=== PATIENT | female | born 1970 | race Caucasian/White ===

== ENCOUNTER → 2016-07-30 | Outpatient (CLI) | payer OTHER ==
--- NOTE | 2016-07-30 23:17 | MR ---
EXAMINATION TYPE: MR thoracic spine wo con DATE OF EXAM: 07/30/2016 10:10 PM COMPARISON: NONE HISTORY: Mid back pain/muscle spasms since November 2015. Cervicalgia and lumbago with lumbar region spond ylolisthesis per order. TECHNIQUE: Multiplanar, multisequence imaging of thoracic spine is performed without contrast. FINDINGS: Artifact from surgical change is noted at C6-C7 level. Spinal cord shows normal course, merlyn iber, and signal as it courses the thoracic spine. Vertebral body heights and alignment are satisfac tory. Disc space heights are maintained. No large posterior disc herniations are seen on sagittal kenneth ges. Small hemangioma is noted at T10 vertebral body level inferiorly on sagittal image 8. Larger hem angioma seen at T2 posterior superior vertebral body level on sagittal image 6. There is mild multile villa anterior and lateral spurring felt present. Axial images are degraded by artifact at C7-T1 level. There is small left paracentral disc protrusion effacing anterolateral thecal sac at T6-T7 level on a xial image 2. Axial images at T11-T12 level show broad-based posterior disc protrusion mildly effacing anterior the merlyn sac on axial image 4, bilateral neural foramina are patent. Remainder axial images felt within normal limits. IMPRESSION: Some multilevel degenerative changes in the thoracic spine as detailed above.
== END | disposition home or self-care (01) ==
LOC: RADMRIMAIN 21:30
PROVIDERS: ATTEND Orthopaedic Surgery Orthopaedic Surgery of the Spine
DX: Z48.89 Encounter for other specified surgical aftercare (principal); M47.814 Spondylosis without myelopathy or radiculopathy, thoracic region; M43.16 Spondylolisthesis, lumbar region; M54.2 Cervicalgia
CPT/HCPCS: 72146

== ENCOUNTER 2017-02-26 07:53 | Day surgery (SDC) | payer OTHER ==
[2017-02-22 14:53] VITALS: BMI 34.7
[~2017-02-26 07:53] MED LIST: LACTATED RINGERS 1,000 ML IV SCH; LIDOCAINE 1% 20 ML VIAL (10MG/ML) FOR IV START INTRADERMA PRN
[2017-02-26 08:26] VITALS: TEMP 98.6
[2017-02-26 08:38] LABS: Glucose,Whole Blood 132 mg/dL (75-99)
[2017-02-26] MEDS ORDERED: PROPOFOL 10 MG/ML 20 ML VIAL IV ONE (08:50)
[2017-02-26] MEDS ORDERED: LIDOCAINE 1% INJ 10MG/ML (20 ML MDV) ONE (08:50)
[2017-02-26 09:49] VITALS: BP 131/90; PULSE 81; RESP 16
[2017-02-26 09:53] LABS: Glucose,Whole Blood 119 mg/dL (75-99)
--- NOTE | 2017-02-26 10:25 | P.PCN ---
Date of Procedure: 02/26/17 Preoperative Diagnosis: Postoperative Diagnosis: Procedure(s) Performed: Procedure: 1. Esophagogastroduodenoscopy and biopsy. 2. Colonoscopy and biopsy. Preoperative diagnosis: Chronic reflux symptoms and change in bowel habits. Postoperative diagnosis: 1. Small sliding hiatal hernia with no obvious esophagitis or complicated reflux disease. 2. Mild antral gastritis. 3. Normal colonoscopy. Preparation: HalfLytely prep. Sedation: Was provided by anesthesia. Brief clinical history: The patient is a 46-year-old female who is referred for this evaluation because of chronic reflux symptoms and change in bowel habits in addition to abdominal cramps and diarrhea that she has been experiencing over the last month or so. Procedure: With the patient on her left lateral decubitus position and after informed consent and adequate sedation, I passed the Olympus-GIF 160 video upper endoscope through the cricopharyngeus down the esophagus. GE junction was around 39-40 cm from the incisors and there was a very small sliding hiatal hernia with no evidence of esophagitis or complicated reflux disease. The endoscope was then passed into the stomach which was insufflated with air and inspected in detail including the retroflex view in the cardia. There was some mottling and erythema in the antrum but no ulcers or erosions. Pyloric channel , duodenal bulb, post bulbar area and descending duodenum were essentially within normal limits. However, because of her symptoms, I obtained biopsies from the duodenum in addition to biopsies from the antrum and esophagus then the endoscope was withdrawn and I proceeded with the colonoscopy. Perianal area did not show any fissures or fistulas. There were fleshy skin tags and external hemorrhoids. No masses were felt on digital rectal examination. The Olympus CFQ 160L video colonoscope was then inserted in the rectum and advanced to the cecum. I made several attempts to intubate the ileocecal valve to examine the terminal ileum but I was not successful. The colon appeared healthy with no edema, erythema, friability, ulceration, exudation or spontaneous bleeding. No polyps or tumors were seen or any obvious diverticular disease. I obtained biopsies from the right colon then I retroflexed the endoscope in the rectum before the endoscope was withdrawn. The patient tolerated the procedure well. Plan: The patient was reassured. Will await biopsy results and make further plans based on her course and biopsy results. She already has an appointment in our office in the next week or 2. Would keep you updated on her progress. Implants: Indications for Procedure: Operative Findings: Description of Procedure:
== END 2017-02-26 10:09 | disposition home or self-care (01) ==
LOC: ORWHC2ENDO 07:53
DX: K29.50 Unspecified chronic gastritis without bleeding (principal); K21.0 Gastro-esophageal reflux disease with esophagitis; K44.9 Diaphragmatic hernia without obstruction or gangrene; K64.4 Residual hemorrhoidal skin tags; R19.4 Change in bowel habit; I10 Essential (primary) hypertension; J44.9 Chronic obstructive pulmonary disease, unspecified; F17.200 Nicotine dependence, unspecified, uncomplicated; G47.33 Obstructive sleep apnea (adult) (pediatric); E11.9 Type 2 diabetes mellitus without complications; Z79.84 Long term (current) use of oral hypoglycemic drugs; F32.9 Major depressive disorder, single episode, unspecified; F41.9 Anxiety disorder, unspecified; M19.90 Unspecified osteoarthritis, unspecified site; Z79.899 Other long term (current) drug therapy
CPT/HCPCS: 81025; 88305; 88342; 45380; 43239; J2001; J2704

== ENCOUNTER → 2018-09-25 | Outpatient (CLI) | payer OTHER ==
--- NOTE | 2018-09-25 09:07 | US ---
EXAMINATION TYPE: US abdomen complete DATE OF EXAM: 09/25/2018 COMPARISON: NONE CLINICAL HISTORY: 47-year-old female R10.9 Abd pain. Intermittent abdomen and right flank pain x coup le months, gets worse after eating, occasional N/V TECHNIQUE: Multiple sonographic images of the abdomen are obtained. FINDINGS: EXAM MEASUREMENTS: Liver Length: 17.6 cm Gallbladder Wall: 0.1 cm CBD: 0.4 cm Spleen: 8.6 cm Right Kidney: 11.5 x 4.9 x 6.1 cm Left Kidney: 11.2 x 5.4 x 5.5 cm Pancreas: visualized portions wnl, tail obscured by overlying midline bowel gas Liver: measures in upper limits of normal, mildly heterogeneous and echogenic with 2 hypoechoic area s adjacent to gallbladder measuring 1.4cm and 1.4cm Gallbladder: 0.5cm hyperechoic non shadowing focus along posterior wall Evidence for sonographic Dinero's sign: no CBD: visualized portions wnl, limited by overlying bowel gas Spleen: wnl Right Kidney: wnl Left Kidney: wnl Upper IVC: wnl Abd Aorta: visualized portions wnl, limited by overlying midline bowel gas IMPRESSION: 1. Borderline hepatomegaly (17.6 cm) with mild to moderate hepatic steatosis. Some focal fatty sparin g along the gallbladder fossa. 2. A 5 mm nonshadowing echogenic focus along the posterior gallbladder wall does not appear mobile an d probably represents a gallbladder wall polyp. 6 month follow-up ultrasound to reassess. 3. No biliary ductal dilatation.
== END | disposition home or self-care (01) ==
LOC: RADUSWWP 07:23
DX: K76.0 Fatty (change of) liver, not elsewhere classified (principal); R16.0 Hepatomegaly, not elsewhere classified; K82.9 Disease of gallbladder, unspecified
CPT/HCPCS: 76700

== ENCOUNTER → 2018-10-06 | Outpatient (CLI) | payer OTHER ==
--- NOTE | 2018-10-06 12:08 | MR ---
EXAMINATION TYPE: MR thoracic spine wo con DATE OF EXAM: 10/06/2018 COMPARISON: MRI thoracic spine July 30, 2016 HISTORY: Back pain TECHNIQUE: Multiplanar, multisequence imaging of thoracic spine is performed without contrast FINDINGS: There is artifact from surgical hardware C6-C7 level redemonstrated Spinal cord redemonstra fabricio normal course, caliber, and signal as it courses the thoracic spine. Vertebral body heights and alignment are satisfactory. Disc space heights are maintained. Tiny posterior disc herniations are se en in the mid to lower thoracic spine similar to prior study. Bone marrow signal intensity is preserv ed. Hemangioma redemonstrated superior-posterior T2 level sagittal image 4. No significant spurring i s seen. Review of the axial images redemonstrate left paracentral disc protrusion effacing anterolateral thec al sac axial image 2 at T6-7 level confirmed sagittal image 5 similar to prior. There is persistent lobulated paracentral disc protrusion effacing anterolateral thecal sac at T11-T12 level on axial kenneth ge 5. No new large disc herniations are present. Visualized upper abdomen and thorax show no new susp icious abnormalities. Prominent but subcentimeter mediastinal lymph nodes are redemonstrated. IMPRESSION: Multilevel small posterior disc herniations mid to lower thoracic spine. No interval pro gression or new large disc herniations are identified.
== END | disposition home or self-care (01) ==
LOC: RADMRIMAIN 11:04
PROVIDERS: ATTEND Family Medicine
DX: M51.24 Other intervertebral disc displacement, thoracic region (principal)
CPT/HCPCS: 72146

== ENCOUNTER → 2018-10-30 | Outpatient (CLI) | payer OTHER ==
--- NOTE | 2018-10-31 10:43 | MM ---
Reason for exam: additional evaluation requested from abnormal screening. Last mammogram was performed 2 months ago. History: Took hormonal contraceptives beginning at age 17. Physical Findings: Nurse did not find any significant physical abnormalities on exam. MG 3D Diag Mammo W/Cad LT LM and spot compression MLO view(s) were taken of the left breast. Prior study comparison: August 27, 2018, mammogram. There are scattered fibroglandular densities. Anterior asymmetric density does not clearly persist. Ultrasound recommended. These results were verbally communicated with the patient and result sheet given to the patient on 10/30/18. ASSESSMENT: Incomplete: need additional imaging evaluation, BI-RAD 0 RECOMMENDATION: Ultrasound of the left breast.
--- NOTE | 2018-10-31 10:44 | USB ---
Reason for exam: additional evaluation requested from abnormal screening. History: Took hormonal contraceptives beginning at age 17. US Breast LT Left complete breast ultrasound includes all four quadrants, the retroareolar region and axilla. Finding demonstrates a vascular vein at 3 o'clock and duct ectasia at 8 o'clock. Precautionary 6 month follow up recommended. These results were verbally communicated with the patient and result sheet given to the patient on 10/30/18. ASSESSMENT: Probably benign, BI-RAD 3 RECOMMENDATION: Follow-up diagnostic mammogram of the left breast in 6 months.
== END | disposition home or self-care (01) ==
LOC: RADMAMWWP 13:03
PROVIDERS: ATTEND Family Medicine
DX: R92.8 Other abnormal and inconclusive findings on diagnostic imaging of breast (principal)
CPT/HCPCS: 77065; 76641; G0279; 77061

== ENCOUNTER 2019-03-24 14:22 | Emergency (ER) | payer OTHER ==
[2019-03-24 14:34] VITALS: RESP 18; TEMP 98.7
[2019-03-24] MEDS ORDERED: KETOROLAC 30 MG/ML 1 ML VIAL IVP STA (16:20)
[2019-03-24] MEDS ORDERED: SODIUM CHLORIDE 0.9% 500 ML 500 ML IV STA (16:20)
--- NOTE | 2019-03-24 16:31 | ED ---
General Adult HPI - General Chief complaint: Recheck/Abnormal Lab/Rx Stated complaint: Female Time Seen by Provider: 03/24/19 14:30 Source: patient, RN notes reviewed Mode of arrival: ambulatory Limitations: no limitations - History of Present Illness Initial comments: This is a 48-year-old female presents emergency department stating that in February she had a stent placed in her left ureter for kidney stone. Patient states she went back to her urologist and he refused to take it out because she states that he did not take her insurance. Patient states she continues to have pain and dysuria. Patient states she comes in today because she is looking to have someone potentially take this out and be treated for possible urinary tract infection. Patient denies abdominal pain. Patient complains of left flank pain. Patient denies any fever chills. Patient denies any nausea vomiting diarrhea. - Related Data Home Medications Medication Instructions Recorded Confirmed Acetaminophen [Tylenol Arthritis] 1,300 mg PO TID 01/10/16 03/24/19 Citalopram Hydrobromide [CeleXA] 40 mg PO DAILY 01/10/16 03/24/19 Methocarbamol [Robaxin] 500 mg PO TID PRN 01/10/16 03/24/19 Losartan [Cozaar] 50 mg PO DAILY 02/22/17 03/24/19 Ergocalciferol [Vitamin D2] 50,000 unit PO WE 03/24/19 03/24/19 Ferrous Sulfate [Feosol] 325 mg PO DAILY 03/24/19 03/24/19 Insulin Glargine,Hum.rec.anlog 35 unit SQ DAILY 03/24/19 03/24/19 [Joannaaglgillian Arechiga U-100] Omeprazole 40 mg PO HS 03/24/19 03/24/19 Pioglitazone HCl [Actos] 15 mg PO HS 03/24/19 03/24/19 Pramipexole [Mirapex] 0.5 mg PO HS 03/24/19 03/24/19 Pramipexole [Mirapex] 1 mg PO QAM 03/24/19 03/24/19 Simvastatin [Zocor] 40 mg PO HS 03/24/19 03/24/19 metFORMIN HCL 1,000 mg PO BID 03/24/19 03/24/19 Previous Rx's Medication Instructions Recorded Fluconazole [Diflucan] 150 mg PO ONCE #2 tab 03/24/19 Sulfamethox-Tmp 800-160Mg [Bactrim 1 each PO Q12HR #14 tab 03/24/19 DS 800-160 mg] Allergies Allergy/AdvReac Type Severity Reaction Status Date / Time adhesive tape Allergy raw red Verified 03/24/19 15:47 skin Review of Systems ROS Statement: Those systems with pertinent positive or pertinent negative responses have been documented in the HPI. ROS Other: All systems not noted in ROS Statement are negative. Past Medical History Past Medical History: Diabetes Mellitus, GERD/Reflux, Hyperlipidemia, Hypertension, Osteoarthritis (OA), Skin Disorder, Sleep Apnea/CPAP/BIPAP Additional Past Medical History / Comment(s): headaches, no cpap used, adult acne-hidradenitis supparativa, kae carpal tunnel, tendonitis rt ankle, bone spurs rt foot, benign tremor, restless leg syndrome, ROSACEA, FATTY LIVER (ENZYMES NORMAL) History of Any Multi-Drug Resistant Organisms: None Reported Past Surgical History: Back Surgery, Tonsillectomy, Tubal Ligation Additional Past Surgical History / Comment(s): I&D OF NUMEROUS HIDRADENITIS SUPPARATIVA OUTBREAKS, COLONOSCOPY, SPINAL FUSION C5-C6 Past Anesthesia/Blood Transfusion Reactions: Motion Sickness Past Psychological History: Anxiety, Depression Smoking Status: Current every day smoker Past Alcohol Use History: None Reported Past Drug Use History: None Reported - Past Family History Brother(s) Family Medical History: Cancer General Exam - General Exam Comments Initial Comments: GENERAL: Patient is well-developed and well-nourished. Patient is nontoxic and well- hydrated and is in mild distress. ENT: Neck is soft and supple. No significant lymphadenopathy is noted. Oropharynx is clear. Moist mucous membranes. Neck has full range of motion without eliciting any pain. EYES: The sclera were anicteric and conjunctiva were pink and moist. Extraocular move ments were intact and pupils were equal round and reactive to light. Eyelids were unremarkable. PULMONARY: Unlabored respirations. Good breath sounds bilaterally. No audible rales rhonchi or wheezing was noted. CARDIOVASCULAR: There is a regular rate and rhythm without any murmurs gallops or rubs. ABDOMEN: Soft and nontender with normal bowel sounds. SKIN: Skin is clear with no lesions or rashes and otherwise unremarkable. NEUROLOGIC: Patient is alert and oriented x3. Cranial nerves II through XII are grossly intact. Motor and sensory are also intact. Normal speech, volume and content. Symmetrical smile. MUSCULOSKELETAL: Normal extremities with adequate strength and full range of motion. LYMPHATICS: No significant lymphadenopathy is noted PSYCHIATRIC: Normal psychiatric evaluation. Limitations: no limitations Course Vital Signs 03/24/19 03/24/19 14:28 18:14 Temperature 98.7 F Pulse Rate 113 H 87 Respiratory 18 18 Rate Blood Pressure 136/86 108/68 O2 Sat by Pulse 98 97 Oximetry Medical Decision Making - Medical Decision Making KUB shows a ureteral stent that appears to be in place in the left side. I spoke with Dr. Purcell he agreed that he would see this patient if she wanted to come to his office. I gave the patient a gram or Rocephin for possible UTI. - Lab Data Result diagrams: 03/24/19 17:00 03/24/19 17:00 Lab Results 03/24/19 03/24/19 03/24/19 Range/Units 17:00 17:00 17:00 WBC 15.7 H (3.8-10.6) k/uL RBC 4.44 (3.80-5.40) m/uL Hgb 13.1 (11.4-16.0) gm/dL Hct 37.7 (34.0-46.0) % MCV 84.8 (80.0-100.0) fL MCH 29.5 (25.0-35.0) pg MCHC 34.7 (31.0-37.0) g/dL RDW 16.0 H (11.5-15.5) % Plt Count 304 (150-450) k/uL Neutrophils % 65 % Lymphocytes % 26 % Monocytes % 5 % Eosinophils % 1 % Basophils % 1 % Neutrophils # 10.2 H (1.3-7.7) k/uL Lymphocytes # 4.0 (1.0-4.8) k/uL Monocytes # 0.8 (0-1.0) k/uL Eosinophils # 0.2 (0-0.7) k/uL Basophils # 0.1 (0-0.2) k/uL Anisocytosis Slight Sodium 141 (137-145) mmol/L Potassium 3.4 L (3.5-5.1) mmol/L Chloride 103 (98-107) mmol/L Carbon Dioxide 27 (22-30) mmol/L Anion Gap 11 mmol/L BUN 10 (7-17) mg/dL Creatinine 0.42 L (0.52-1.04) mg/dL Est GFR (CKD-EPI)AfAm >90 (>60 ml/min/1.73 sqM) Est GFR (CKD-EPI)NonAf >90 (>60 ml/min/1.73 sqM) Glucose 97 (74-99) mg/dL Calcium 9.8 (8.4-10.2) mg/dL Total Bilirubin 0.2 (0.2-1.3) mg/dL AST 25 (14-36) U/L ALT 32 (9-52) U/L Alkaline Phosphatase 69 (38-126) U/L Total Protein 6.8 (6.3-8.2) g/dL Albumin 4.0 (3.5-5.0) g/dL Amylase 49 (30-110) U/L Lipase 54 (23-300) U/L Urine Color Yellow Urine Appearance Cloudy H (Clear) Urine pH 6.5 (5.0-8.0) Ur Specific [place] 1.028 (1.001-1.035) Urine Protein 2+ H (Negative) Urine Glucose (UA) Negative (Negative) Urine Ketones Negative (Negative) Urine Blood Moderate H (Negative) Urine Nitrite Negative (Negative) Urine Bilirubin Negative (Negative) Urine Urobilinogen 2.0 (<2.0) mg/dL Ur Leukocyte Esterase Moderate H (Negative) Urine RBC >182 H (0-5) /hpf Urine WBC 34 H (0-5) /hpf Ur Squamous Epith Cells 1 (0-4) /hpf Urine Mucus Few H (None) /hpf Disposition Clinical Impression: Urinary tract infection, Retained ureteral stent, Hematuria Disposition: HOME SELF-CARE Condition: Good Instructions (If sedation given, give patient instructions): Urinary Tract Infection in Women (ED) Additional Instructions: Patient needs to follow up with urology to have the ureteral stent removed Prescriptions: Sulfamethox-Tmp 800-160Mg [Bactrim DS 800-160 mg] 1 each PO Q12HR #14 tab Fluconazole [Diflucan] 150 mg PO ONCE #2 tab Is patient prescribed a controlled substance at d/c from ED?: No Referrals: Radha Crawford MD [Primary Care Provider] - 1-2 days Time of Disposition: 19:00
[2019-03-24 17:16] LABS: Anisocytosis Slight; Basophils # (A) 0.1 k/uL (0-0.2); Basophils % (A) 1 %; Eosinophils # (A) 0.2 k/uL (0-0.7); Eosinophils % (A) 1 %; HCT 37.7 % (34.0-46.0); HGB 13.1 gm/dL (11.4-16.0); Lymphocytes % (A) 26 %; MCH 29.5 pg (25.0-35.0); MCHC 34.7 g/dL (31.0-37.0); MCV 84.8 fL (80.0-100.0); Mean Platelet Volume 7.1; Monocytes # (A) 0.8 k/uL (0-1.0); Monocytes % (A) 5 %; Neutrophils # (A) 10.2 k/uL (1.3-7.7); Neutrophils % (A) 65 %; Platelet Count 304 k/uL (150-450); RBC 4.44 m/uL (3.80-5.40); WBC 15.7 k/uL (3.8-10.6)
[2019-03-24 17:19] LABS: Appearance,Urine Cloudy (Clear); Bilirubin,Urine Negative (Negative); Blood,Urine Moderate (Negative); Color,Urine Yellow; Glucose,Urine (UA) Negative (Negative); Ketones,Urine Negative (Negative); Leukocyte Esterase,Urine Moderate (Negative); Mucus,Urine Few /hpf; Nitrite,Urine Negative (Negative); PH, Urine 6.5 (5.0-8.0); Protein,Urine 2+ (Negative); RBC,Urine >182 /hpf (0-5); Specific Gravity,Urine 1.028 (1.001-1.035); Squamous Epithelial Cell,Urine 1 /hpf (0-4); WBC,Urine 34 /hpf (0-5)
[2019-03-24 17:27] LABS: ALT 32 U/L (9-52); AST 25 U/L (14-36); African American GFR (CKD) >90 (>60 ml/min/1.73 sqM); Alkaline Phosphatase 69 U/L (38-126); Amylase 49 U/L (30-110); Anion Gap 11 mmol/L; Blood Urea Nitrogen 10 mg/dL (7-17); Calcium 9.8 mg/dL (8.4-10.2); Carbon Dioxide 27 mmol/L (22-30); Chloride 103 mmol/L (98-107); Glucose 97 mg/dL (74-99); Potassium 3.4 mmol/L (3.5-5.1); Sodium 141 mmol/L (137-145); Total Bilirubin 0.2 mg/dL (0.2-1.3); Total Protein 6.8 g/dL (6.3-8.2)
--- NOTE | 2019-03-24 18:32 | XR ---
EXAMINATION TYPE: XR KUB DATE OF EXAM: 03/24/2019 COMPARISON: NONE HISTORY: Stent placement. TECHNIQUE: 2 views upright FINDINGS: There is left ureteral stent that appears to be in good position. I see no definite calculi over the left kidney. The bowel gas pattern is nonacute. Lung bases are clear. IMPRESSION: Nonacute abdomen. Ureteral stent is probably in good position.
[2019-03-24] MEDS ORDERED: cefTRIAXone IN SWFI 1,000 MG/10 ML SYRINGE IVP STA (18:34)
[2019-03-24] MEDS ORDERED: KETOROLAC 60 MG/2 ML VIAL IVP STA (19:00)
[2019-03-24 19:38] VITALS: BP 112/72; PULSE 86
== END 2019-03-24 19:38 | disposition home or self-care (01) ==
LOC: EC 14:22
DX: N39.0 Urinary tract infection, site not specified (principal); Z96.0 Presence of urogenital implants; E11.9 Type 2 diabetes mellitus without complications; K21.9 Gastro-esophageal reflux disease without esophagitis; E78.5 Hyperlipidemia, unspecified; I10 Essential (primary) hypertension; M19.90 Unspecified osteoarthritis, unspecified site; G25.81 Restless legs syndrome; F32.9 Major depressive disorder, single episode, unspecified; F41.9 Anxiety disorder, unspecified; F17.200 Nicotine dependence, unspecified, uncomplicated; Z91.048 Other nonmedicinal substance allergy status; Z79.4 Long term (current) use of insulin; Z79.891 Long term (current) use of opiate analgesic; Z79.899 Other long term (current) drug therapy; Z98.1 Arthrodesis status
CPT/HCPCS: 36415; 80053; 82150; 83690; 85025; 81001; 74018; 99284; 96374; 96375; 96376; 96361 ×2; J0696; J1885 ×2

== ENCOUNTER 2020-04-18 08:12 | Day surgery (SDC) | payer OTHER ==
[~2020-04-18 08:12] MED LIST changes: -LACTATED RINGERS 1,000 ML IV SCH; -LIDOCAINE 1% 20 ML VIAL (10MG/ML) FOR IV START INTRADERMA PRN; +PREMYELOGRAM MEDICATION REVIEW 1 EACH MISC PO PRN
[2020-04-18] MEDS ORDERED: diazePAM 5 MG TAB PO STA (09:01)
[2020-04-18 09:27] VITALS: TEMP 98.3
[2020-04-18] MEDS ORDERED: HYDROcodone/APAP 5-325MG 1 EACH TAB PO PRN (09:50)
--- NOTE | 2020-04-18 10:35 | CT ---
EXAMINATION TYPE: CT lumbar spine post myelogram DATE OF EXAM: 04/18/2020 COMPARISON: Back pain HISTORY: pain CT DLP: 900 mGycm Automated exposure control for dose reduction was used. CONTRAST: Noncontrast CT of the lumbar spine was performed post myelogram. Bone and soft tissue window setting s are submitted as well as coronal and sagittal reconstructions. At T12-L1 there is a right paracentral disc herniation with moderate effacement of thecal sac. No spi nal cord contact. Neural foramina patent. L1-L2: Normal disc space height. No disc herniation protrusion or central stenosis. No facet joint arthropathy. No evidence for foraminal encroachment. L2-L3: There is a left paracentral disc protrusion or tiny herniation with mild effacement of thecal sac. There is facet arthropathy. Neural foramina remain patent. L3-L4: Circumferential disc bulging with mild hypertrophic changes of the facets. Neural foramina pat ent. No foraminal encroachment. No Canal stenosis. L4-L5: Broad-based disc bulging centrally. Mild effacement of thecal sac. More advanced facet arthrop athy. Mild bilateral foraminal encroachment. L5-S1: Advanced facet arthropathy. Canal stenosis. Hypertrophic changes result in mild to moderate bi lateral foraminal encroachment. No focal disc herniation. Mild broad-based central disc bulging. Arthropathy of the SI joints. No erosive changes. IMPRESSION: 1. Multilevel mild hypertrophic and degenerative disc disease. At T12-L1 there is a right paracentral disc herniation with moderate effacement of thecal sac. No spinal cord contact or foraminal encroach ment. I could not exclude a extruded component extending along the upper margin of the T12 vertebral segment 2. Small left paracentral disc protrusion or tiny herniation L2-L3 with mild effacement of thecal sac . No foraminal encroachment. 3. Broad-based central disc bulging L3-4 and L5-S1 with no canal stenosis. Advanced facet arthropathy L5-S1 contributes to bilateral foraminal encroachment. 4. Broad-based central disc bulging L4-L5 with mild effacement of thecal sac. Mild bilateral foramina l encroachment. Advanced facet arthropathy.
--- NOTE | 2020-04-18 10:44 | CT ---
EXAMINATION TYPE: CT cervical spine w con DATE OF EXAM: 04/18/2020 COMPARISON: None HISTORY: pain CT DLP: 939 mGycm Automated exposure control for dose reduction was used. CONTRAST: 8 mL Omnipaque 300 intrathecal as part of myelographic TECHNIQUE: Post myelogram noncontrast CT of the cervical spine was performed. FINDINGS: Craniocervical junction is maintained. There is multilevel degenerative disc disease and hypertrophic spurring. Severe changes at C3-4, C4-5 and C5-C6. Postsurgical change at C6-C7. At C2-C3 no foraminal encroachment or canal stenosis. Mild posterior spondylosis. Mild degenerative d isc disease. At C3-C4 there is extensive posterior cervical spondylosis with uncovertebral joint hypertrophy. Ther e is severe bilateral foraminal encroachment. There is significant anterior compression of thecal sac and mild anterior impression upon the spinal cord. At C4-C5 there is posterior spondylosis with facet arthropathy. There is moderate compression of the thecal sac and anterior compression of the spinal cord. Uncovertebral joint hypertrophy contributes t o moderate to severe bilateral foraminal encroachment. At C5-C6 is posterior spondylosis. Facet arthropathy and uncovertebral joint hypertrophy. Mild bilate ral foraminal encroachment. Mild effacement of thecal sac and AP canal stenosis. At C6-7 there is distortion of the images due to postsurgical changes resulting in nondiagnostic. Sag ittal view does demonstrate hypertrophic spurring posteriorly with bilateral foraminal encroachment. At C7-T1 artifact limits evaluation no obvious foraminal encroachment. There are numerous subpleural nodules involving the upper lobes of the lungs bilaterally measuring le ss than [address] of the chest. Larger nodule is seen measuring 6 mm in the right upper lobe . IMPRESSION: 1. Severe multilevel degenerative disc disease with postsurgical change C6-C7. Artifact obscures this level results in nondiagnostic study at this level. 2. Facet arthropathy and uncovertebral joint hypertrophy result in multilevel thecal sac impression a nd canal stenosis with effacement of the anterior margin of the spinal cord as discussed above at mul tiple levels. Correlate clinically. 3. Multiple bilateral pulmonary nodules recommend CT scan of the chest.
--- NOTE | 2020-04-18 11:45 | FL ---
EXAMINATION TYPE: FL myelogram 2 or more regions DATE OF EXAM: 04/18/2020 COMPARISON: NONE HISTORY: Neck and back pain Informed consent was obtained and all the patient's questions were answered. The L3-L4 level was loc alized under fluoroscopy. Standard sterile technique was utilized as well as appropriate local anest hesia 1% Lidocaine and sodium bicarbonate. Spinal needle was introduced into the thecal sac under fl uoroscopic guidance at the L4-L5 level and 8 mL's of Isovue 300 was injected. The patient tolerated the procedure well and left the department in stable condition. CT myelography is to follow. 2 minut es and 39 seconds of fluoroscopy and T2 images are submitted. IMPRESSION: Successful myelography cervical and lumbar spine.
[2020-04-18 12:15] VITALS: RESP 16
[2020-04-18 13:15] VITALS: BP 114/73; PULSE 81
== END 2020-04-18 13:50 | disposition home or self-care (01) ==
LOC: RADPROMAIN 08:12
PROVIDERS: ATTEND Orthopaedic Surgery
DX: M50.123 Cervical disc disorder at C6-C7 level with radiculopathy (principal); M47.22 Other spondylosis with radiculopathy, cervical region; M51.26 Other intervertebral disc displacement, lumbar region; M51.25 Other intervertebral disc displacement, thoracolumbar region; M51.36 Other intervertebral disc degeneration, lumbar region; F17.210 Nicotine dependence, cigarettes, uncomplicated; Z98.1 Arthrodesis status; I10 Essential (primary) hypertension; F41.9 Anxiety disorder, unspecified; F32.9 Major depressive disorder, single episode, unspecified; E11.9 Type 2 diabetes mellitus without complications; E78.00 Pure hypercholesterolemia, unspecified; Z79.1 Long term (current) use of non-steroidal anti-inflammatories (NSAID); Z79.899 Other long term (current) drug therapy; Z79.4 Long term (current) use of insulin; Z82.49 Family history of ischemic heart disease and other diseases of the circulatory system; Z83.3 Family history of diabetes mellitus; Z80.7 Family history of other malignant neoplasms of lymphoid, hematopoietic and related tissues
CPT/HCPCS: 62305; 72126; 72132; Q9967

== ENCOUNTER → 2022-01-17 | Outpatient (CLI) | payer OTHER ==
--- NOTE | 2022-01-17 12:20 | NM ---
EXAMINATION TYPE: NM gastric emptying static DATE OF EXAM: 01/17/2022 COMPARISON: NONE HISTORY: Dysphasia Following administration of 1.86 mCi Tc 99m Sulfur Colloid with 4 OUNCES EGG WHITES, 1-1-/2 PIECES OF TOAST W/BUTTER & JELLY, 6 OUNCES WATER, projection images of the abdomen were obtained [address] ingestion. Patient Emptying Values 1 Hour 31 % 2 Hours 73 % 3 Hours 95 % 4 Hours 100 % Gastroesophagel reflux: None IMPRESSION: 1. There is delayed gastric emptying 1 hour which resolves to correlate clinically. Gastric emptying normal percentage values: 30 minutes: <70% of retention (> 30% emptying) suggests abnormally fast emptying. 60 minutes: <90% retention (>10% emptying) is normal; less than 30% retention (>70% emptying) suggest s abnormally rapid empying. 90 minutes: <65% retention (> 35% emptying) is normal. 120 minutes: <60% retention (> 40% emptying) is normal. 180 minutes: <30% retention (> 70% emptying) is normal. Gastric emptying T-1/2: Solid: The normal range is 60-105 minutes Liquid only: Normal range is 10-45 minutes. Liquid only-children: At 60 minutes, normal range is 44-58 % . Liquid only-infants: At 60 minutes, normal range is 32-64 %. Additional references: Gastric Emptying Scintigraphy [email or web address]://[email or web address]
== END | disposition home or self-care (01) ==
LOC: RADNMMAIN 06:52
PROVIDERS: ATTEND Internal Medicine Gastroenterology
DX: R10.9 Unspecified abdominal pain (principal)
CPT/HCPCS: 78264; A9537